=== PATIENT | female | born 1980 | race Caucasian/White ===

== ENCOUNTER 2016-12-02 13:01 | Emergency (ER) | payer BC, OTHER ==
[~2016-12-02] VITALS: Ht 162.6 cm; Wt 78.0 kg
[2016-12-02 13:25] VITALS: BP 144/98
[2016-12-02 14:18] LABS: BASO % 0 % (0-3); EOS # 0.1 x10^3/uL (0.0-0.7); EOS % 1 % (0-3); HEMATOCRIT 36.6 % (36.0-47.0); HEMOGLOBIN 12.6 g/dL (12.0-15.5); LYMPH # 1.5 x10^3/uL (1.0-4.8); LYMPH % 14 % (24-48); MEAN CORPUSCULAR HEMOGLOBIN 30 pg (25-35); MEAN CORPUSCULAR HGB CONC 35 g/dL (31-37); MEAN CORPUSCULAR VOLUME 87 fL (79-100); MONO # 0.7 x10^3/uL (0.0-1.1); MONO % 6 % (0-9); NEUT # 8.5 x10^3uL (1.8-7.7); NEUT % 79 % (31-73); PLATELET COUNT 338 x10^3/uL (140-400); RED BLOOD COUNT 4.21 x10^6/uL (3.50-5.40); RED CELL DISTRIBUTION WIDTH 13.3 % (11.5-14.5); WHITE BLOOD COUNT 10.8 x10^3/uL (4.0-11.0)
[2016-12-02 14:19] LABS: CREATININE 0.8 mg/dL (0.6-1.0); GFR 82.1; POTASSIUM 3.4 mmol/L (3.5-5.1)
[2016-12-02 14:36] LABS: BILIRUBIN,URINE NEG (NEG); CLARITY,URINE HAZY; COLOR,URINE STRAW; GLUCOSE,URINE NEG (NEG); NITRITE,URINE NEG (NEG); UROBILINOGEN,URINE 0.2 mg/dL (0.2 mg/dL)
[2016-12-02 14:37] LABS: BACTERIA,URINE FEW /HPF (0-FEW); SQUAMOUS EPITHELIAL CELL,UR MOD /LPF
--- NOTE | 2016-12-02 15:49 | RAD ---
Obstetrical ultrasound, 12/02/2016: History: Vaginal bleeding, positive test Transabdominal and transvaginal scans were obtained. The central uterine echo complex is thickened. It contains a small cystic structure compatible with an early gestational sac. It demonstrates a mean diameter of 5 mm compatible with a gestational age of 5-6 weeks. This yields a sonographic EDC of 08/02/2017. No yolk sac or pole is seen within the gestational sac, however, that is not considered abnormal at this early stage. There is no evidence of subchorionic hemorrhage. The ovaries are of normal size. A 1.3 cm simple cyst is present in the right ovary. No abnormal adnexal mass is seen. There is a trace amount of free fluid in the pelvis. This amount of fluid can be on a physiologic basis. IMPRESSION: 1. Early intrauterine gestation as described above. Sonographic follow-up is suggested to confirm viability of this . 2. Small right ovarian cyst.
--- NOTE | 2016-12-02 16:06 | PHYS DOC ---
Past History Past Medical History: , Other Past Surgical History: Other Alcohol Use: None Drug Use: None Adult General Chief Complaint Chief Complaint: VAGINAL BLEEDING HPI HPI Patient is a 36 year old female who presents with vaginal bleeding in early . Patient reports onset of symptoms today with light spotting & passage of a few clots, & lower abdominal cramping pain. She denies fevers/ chills, nausea, vomiting, diarrhea, dysuria, vaginal discharge. She has been receiving progesterone injections. She is at about 8 weeks by dates with history of 3 spontaneous abortions. Her PCP is Dr. Murillo & she does not yet have an OB. Review of Systems Review of Systems Constitutional: Denies fever or chills HENT: Denies nasal congestion or sore throat Respiratory: Denies cough or shortness of breath Cardiovascular: Denies chest pain GI: Reports abdominal pain, denies nausea, vomiting : Reports vaginal bleeding Musculoskeletal: Denies back pain or joint pain Integument: Denies rash Neurologic: Denies headache Allergies Allergies Allergies Coded Allergies Type Severity Reaction Last Updated Verified No Known Drug Allergies 05/11/15 No Physical Exam Physical Exam Constitutional: Well developed, well nourished, no acute distress, non-toxic appearance. HENT: Normocephalic, atraumatic, bilateral external ears normal, oropharynx moist, nose normal. Eyes: conjunctiva normal, no discharge. Neck: supple, no stridor. Cardiovascular: RRR, no murmurs, no edema. Lungs & Thorax: LCTAB, no wheezing, no respiratory distress. Abdomen: soft, nontender, nondistended. no masses or pulsatile masses. : normal appearing female external genitalia, normal appearing cervix with closed os, minimal dark blood in vaginal vault, no CMT/adnexal tenderness. Skin: Warm, dry, no erythema, no rash. Back: No CVA tenderness. Extremities: No tenderness, no edema. Neurologic: Alert and oriented X 3, no focal deficits noted. Psychologic: Affect normal, judgement normal, mood normal. Current Patient Data Vital Signs Vital Signs Date Time Temp Pulse Resp B/P (MAP) Pulse Ox O2 Delivery O2 Flow Rate FiO2 12/02/16 13:25 98.5 87 18 100 12/02/16 13:10 Room Air Lab Results Laboratory Tests Test 12/02/16 13:35 12/02/16 13:57 12/02/16 14:26 Urine Collection Type Unknown Urine Color Straw Urine Clarity Hazy Urine pH 6.0 Urine Specific Davis <=1.005 Urine Protein Neg (NEG-TRACE) Urine Glucose (UA) Neg mg/dL (NEG) Urine Ketones (Stick) Neg mg/dL (NEG) Urine Blood Mod (NEG) Urine Nitrite Neg (NEG) Urine Bilirubin Neg (NEG) Urine Urobilinogen Dipstick 0.2 mg/dL (0.2 mg/dL) Urine Leukocyte Esterase Trace (NEG) Urine RBC 6-10 /HPF (0-2) Urine WBC 1-4 /HPF (0-4) Urine Squamous Epithelial Cells Mod /LPF Urine Bacteria Few /HPF (0-FEW) White Blood Count 10.8 x10^3/uL (4.0-11.0) Red Blood Count 4.21 x10^6/uL (3.50-5.40) Hemoglobin 12.6 g/dL (12.0-15.5) Hematocrit 36.6 % (36.0-47.0) Mean Corpuscular Volume 87 fL (79-100) Mean Corpuscular Hemoglobin 30 pg (25-35) Mean Corpuscular Hemoglobin Concent 35 g/dL (31-37) Red Cell Distribution Width 13.3 % (11.5-14.5) Platelet Count 338 x10^3/uL (140-400) Neutrophils (%) (Auto) 79 % (31-73) H Lymphocytes (%) (Auto) 14 % (24-48) L Monocytes (%) (Auto) 6 % (0-9) Eosinophils (%) (Auto) 1 % (0-3) Basophils (%) (Auto) 0 % (0-3) Neutrophils # (Auto) 8.5 x10^3uL (1.8-7.7) H Lymphocytes # (Auto) 1.5 x10^3/uL (1.0-4.8) Monocytes # (Auto) 0.7 x10^3/uL (0.0-1.1) Eosinophils # (Auto) 0.1 x10^3/uL (0.0-0.7) Basophils # (Auto) 0.0 x10^3/uL (0.0-0.2) Maternal Serum HCG Beta Subunit 774 mIU/mL (0-6) H Sodium Level 140 mmol/L (136-145) Potassium Level 3.4 mmol/L (3.5-5.1) L Chloride Level 105 mmol/L (98-107) Carbon Dioxide Level 28 mmol/L (21-32) Anion Gap 7 (6-14) Blood Urea Nitrogen 9 mg/dL (7-20) Creatinine 0.8 mg/dL (0.6-1.0) Estimated GFR (Cockcroft-Gault) 82.1 Glucose Level 104 mg/dL (70-99) H Calcium Level 9.0 mg/dL (8.5-10.1) POC Urine HCG, Qualitative hcg positive (Negative) EKG EKG [] Radiology/Procedures Radiology/Procedures PROCEDURE: OB <14 WKS W/TV Obstetrical ultrasound, 12/02/2016: History: Vaginal bleeding, positive test Transabdominal and transvaginal scans were obtained. The central uterine echo complex is thickened. It contains a small cystic structure compatible with an early gestational sac. It demonstrates a mean diameter of 5 mm compatible with a gestational age of 5-6 weeks. This yields a sonographic EDC of 08/02/2017. No yolk sac or pole is seen within the gestational sac, however, that is not considered abnormal at this early stage. There is no evidence of subchorionic hemorrhage. The ovaries are of normal size. A 1.3 cm simple cyst is present in the right ovary. No abnormal adnexal mass is seen. There is a trace amount of free fluid in the pelvis. This amount of fluid can be on a physiologic basis. IMPRESSION: 1. Early intrauterine gestation as described above. Sonographic follow-up is suggested to confirm viability of this . 2. Small right ovarian cyst. DICTATED AND SIGNED BY: JOSÉ MIGUEL COOK MD DATE: 12/02/16 1542 [] Course & Med Decision Making Course & Med Decision Making Pertinent Labs and Imaging studies reviewed. (See chart for details) The patient presents with vaginal bleeding in early . Vitals stable, well appearing, Bleeding minimal on exam & pain well controlled. Hemoglobin stable, Rh positive. BHCG is in 700s with US showing likely early IUP about 5- 6 weeks. BCHG & US seem to correlate but not consistent with her dates. She actually had labs drawn by PCP last week, so US tech called for results. Unfortunately they lynn progresterone levels but no BHCG so not able to trend. Discussed at length with patient; unfortunately difficult to give definite information based on just today's visit, most helpful will be to follow BHCG trend & see whether gestational sac progresses on US. Patient understands though is obviously anxious given her history. Recommend pelvic rest, tylenol for pain, follow up with PCP or OB in 2 days for repeat labs & possibly repeat US. She can contact Dr. Victoria at [place] if she is unable to establish care with an OB of her choice in this time frame. Come back for high fever, severe pain, uncontrolled vomiting, vaginal hemorrhage requiring greater than 1 pad per hour, any otherwise worsening condition. Discharged home in stable condition. [] Dragon Disclaimer Dragon Disclaimer This chart was dictated in whole or in part using Voice Recognition software in a busy, high-work load, and often noisy Emergency Department environment. It may contain unintended and wholly unrecognized errors or omissions. Departure Departure: Impression: Primary Impression: Vaginal bleeding before 22 weeks gestation Disposition: HOME, SELF-CARE Condition: STABLE Referrals: BINTA ROMERO DO (PCP) [facility] Patient Instructions: Vaginal Bleeding During , First Trimester Additional Instructions: You were seen in the emergency department today for vaginal bleeding in early . Your ultrasound today shows gestational sac but no pole or heartbeat, which is consistent with being about 5-6 weeks . Your B HCG was 774. It is important to follow up with OB or with your primary care for repeat labs & possibly another ultrasound. Don't have intercourse & try to rest. Make an appointment in 2 days. Come back for high fever, severe pain, uncontrolled vomiting, heavy bleeding requiring more than 1 pad per hour, any otherwise worsening condition. GABRIELLE LEWIS MD Dec 02, 2016 16:06
[2016-12-03 17:11] LABS: CHLAMYDIA PROBE Negative (Negative)
== END 2016-12-02 16:26 | disposition home or self-care (01) ==
LOC: ER 13:01
DX: O46.91 Antepartum hemorrhage, unspecified, first trimester (principal); Z3A.01 Less than 8 weeks gestation of pregnancy
CPT/HCPCS: 36415; 76801; 76817; 80048; 81001; 81025; 84702; 85025; 86850; 86900; 86901; 87086; 87491; 87591; 99285; Q0111

== ENCOUNTER 2016-12-03 08:55 | Emergency (ER) | payer OTHER ==
[~2016-12-03] VITALS: Ht 162.6 cm; Wt 77.1 kg
[2016-12-03 10:00] VITALS: BP 108/60
[2016-12-03] MEDS ORDERED: diphenhydrAMINE 50 MG/ML VIAL IM ONE (10:00)
[2016-12-03] MEDS ORDERED: PROCHLORPERAZINE 10 MG/2 ML VIAL. IM ONE (10:00)
[2016-12-03] MEDS ORDERED: KETOROLAC 60 MG/2 ML VIAL. IM ONE (10:00)
[2016-12-03 10:24] LABS: BASO # 0.1 x10^3/uL (0.0-0.2); BASO % 1 % (0-3); EOS % 1 % (0-3); HEMATOCRIT 37.3 % (36.0-47.0); HEMOGLOBIN 12.8 g/dL (12.0-15.5); LYMPH # 1.4 x10^3/uL (1.0-4.8); LYMPH % 16 % (24-48); MEAN CORPUSCULAR HEMOGLOBIN 30 pg (25-35); MEAN CORPUSCULAR HGB CONC 34 g/dL (31-37); MEAN CORPUSCULAR VOLUME 87 fL (79-100); MONO # 0.6 x10^3/uL (0.0-1.1); MONO % 7 % (0-9); NEUT # 6.8 x10^3uL (1.8-7.7); NEUT % 76 % (31-73); PLATELET COUNT 325 x10^3/uL (140-400); RED CELL DISTRIBUTION WIDTH 13.2 % (11.5-14.5)
--- NOTE | 2016-12-03 11:06 | PHYS DOC ---
Past History Past Medical History: , Other Past Surgical History: Other Alcohol Use: None Drug Use: None Adult General Chief Complaint Chief Complaint: VAGINAL BLEEDING HPI HPI Patient is a 36 year old F who presents with vaginal bleeding during that started yesterday. Today she has had increasing suprapubic cramping with passage of a large clot this morning. She does have a history of miscarriages and difficulty conceiving. She has been taking progesterone in order to become and has been managed by Dr. Murillo, [facility]. She has no exacerbating or alleviating factors. She has no other associated symptoms Review of Systems Review of Systems Constitutional: Denies fever or chills [] Eyes: Denies change in visual acuity, redness, or eye pain [] HENT: Denies nasal congestion or sore throat [] Respiratory: Denies cough or shortness of breath [] Cardiovascular: No additional information not addressed in HPI [] GI: Negative except history of present illness : Denies dysuria or hematuria [] Musculoskeletal: Denies back pain or joint pain [] Integument: Denies rash or skin lesions [] Neurologic: Denies headache, focal weakness or sensory changes [] Endocrine: Denies polyuria or polydipsia [] Family History Family History Noncontributory Current Medications Current Medications Current Medications Medications (Trade) Dose Ordered Sig/[facility] Start Time Stop Time Status Last Admin Dose Admin Diphenhydramine HCl (Benadryl) 50 mg 1X ONCE 12/03/16 10:00 12/03/16 10:01 DC 12/03/16 09:51 50 MG Ketorolac Tromethamine (Toradol) 30 mg 1X ONCE 12/03/16 10:00 12/03/16 10:01 DC 12/03/16 10:00 30 MG Prochlorperazine Edisylate (Compazine) 10 mg 1X ONCE 12/03/16 10:00 12/03/16 10:01 DC 12/03/16 09:51 10 MG Allergies Allergies Allergies Coded Allergies Type Severity Reaction Last Updated Verified No Known Drug Allergies 05/11/15 No Physical Exam Physical Exam Constitutional: Well developed, well nourished, no acute distress, non-toxic appearance. [] HENT: Normocephalic, atraumatic, Eyes: EOMI, conjunctiva normal, no discharge. [] Cardiovascular:Heart rate regular rhythm, no murmur [] Lungs & Thorax: Bilateral breath sounds clear to auscultation [] Abdomen: Bowel sounds normal, soft, no masses, no pulsatile masses. [] Mild suprapubic tenderness to palpation Skin: Warm, dry, no erythema, no rash. [] Back: No tenderness, no CVA tenderness. [] Extremities: No tenderness, no cyanosis, no clubbing, ROM intact, no edema. [] Neurologic: Alert and oriented X 3, normal motor function, normal sensory function, no focal deficits noted. [] Psychologic: Affect normal, judgement normal, mood normal. [] Current Patient Data Vital Signs Normal vital signs. Please refer to nursing documentation for specifics Lab Results Laboratory Tests Test 12/03/16 10:10 White Blood Count 9.0 x10^3/uL (4.0-11.0) Red Blood Count 4.30 x10^6/uL (3.50-5.40) Hemoglobin 12.8 g/dL (12.0-15.5) Hematocrit 37.3 % (36.0-47.0) Mean Corpuscular Volume 87 fL (79-100) Mean Corpuscular Hemoglobin 30 pg (25-35) Mean Corpuscular Hemoglobin Concent 34 g/dL (31-37) Red Cell Distribution Width 13.2 % (11.5-14.5) Platelet Count 325 x10^3/uL (140-400) Neutrophils (%) (Auto) 76 % (31-73) H Lymphocytes (%) (Auto) 16 % (24-48) L Monocytes (%) (Auto) 7 % (0-9) Eosinophils (%) (Auto) 1 % (0-3) Basophils (%) (Auto) 1 % (0-3) Neutrophils # (Auto) 6.8 x10^3uL (1.8-7.7) Lymphocytes # (Auto) 1.4 x10^3/uL (1.0-4.8) Monocytes # (Auto) 0.6 x10^3/uL (0.0-1.1) Eosinophils # (Auto) 0.0 x10^3/uL (0.0-0.7) Basophils # (Auto) 0.1 x10^3/uL (0.0-0.2) Maternal Serum HCG Beta Subunit 661 mIU/mL (0-6) H Beta hCG compared to previous and found to be decreasing. Hemoglobin is stable when compared to previous Course & Med Decision Making Course & Med Decision Making Pertinent Labs and Imaging studies reviewed. (See chart for details) Dragon Disclaimer Dragon Disclaimer This chart was dictated in whole or in part using Voice Recognition software in a busy, high-work load, and often noisy Emergency Department environment. It may contain unintended and wholly unrecognized errors or omissions. Departure Departure: Impression: Primary Impression: Miscarriage Disposition: HOME, SELF-CARE Condition: STABLE Referrals: BINTA ROMERO DO (PCP) Patient Instructions: Miscarriage Additional Instructions: Yesi was seen in the emergency department for vaginal bleeding during . No emergency medical condition was found on history or physical exam. She did have labs which showed normal blood counts and following beta hCG levels as compared to yesterday. This decrease is consistent with a miscarriage. Her OB was contacted by phone and recommended holding her progesterone at this time. She was advised follow-up with her OB in the next 1- 2 weeks for further management. SHAHID ESTRELLA MD Dec 03, 2016 11:06
== END 2016-12-03 11:28 | disposition home or self-care (01) ==
LOC: ER 08:55
DX: O03.9 Complete or unspecified spontaneous abortion without complication (principal)
CPT/HCPCS: 36415; 84702; 85025; 86900; 86901; 96372; 99284; J0780; J1200; J1885

== ENCOUNTER 2018-06-15 14:56 | Emergency (ER) | payer OTHER ==
[~2018-06-15] VITALS: Ht 162.6 cm; Wt 77.1 kg
[2018-06-15] MEDS ORDERED: IV NORMAL SALINE 1,000ML 1,000 ML IV ONE (15:15)
--- NOTE | 2018-06-15 15:16 | PHYS DOC ---
Past History Past Medical History: , Other Past Surgical History: Other Alcohol Use: None Drug Use: None Adult General Chief Complaint Chief Complaint: HEADACHE HPI HPI 37-year-old female presents with headache. The patient has a history of migraines. She states that this headache feels somewhat her previous migraines. The pain was in the front of her head. She also has some upper neck pain. She took 25 mg doses of zolmitriptan about 4-5 hours ago but it did not help. She has been nauseated and vomited at least once. She denies fever or chills. She has no other symptoms of illness. Review of Systems Review of Systems Constitutional: Denies fever or chills [] Eyes: Denies change in visual acuity, redness, or eye pain [] HENT: Denies nasal congestion or sore throat [] Respiratory: Denies cough or shortness of breath [] Cardiovascular: No additional information not addressed in HPI [] GI: Denies abdominal pain, nausea, vomiting, bloody stools or diarrhea [] : Denies dysuria or hematuria [] Musculoskeletal: Denies back pain or joint pain [] Integument: Denies rash or skin lesions [] Neurologic: Headache. Denies focal weakness or sensory changes [] Endocrine: Denies polyuria or polydipsia [] All other systems were reviewed and found to be within normal limits, except as documented in this note. Allergies Allergies Allergies Coded Allergies Type Severity Reaction Last Updated Verified No Known Drug Allergies 05/11/15 No Physical Exam Physical Exam Constitutional: Well developed, well nourished, no acute distress, non-toxic appearance. [] HENT: Normocephalic, atraumatic, bilateral external ears normal, oropharynx moist, no oral exudates, nose normal.[] Eyes: PERRLA, EOMI, conjunctiva normal, no discharge. Photophobia [] Neck: Normal range of motion, no tenderness, supple, no stridor. [] Cardiovascular:Heart rate regular rhythm, no murmur [] Lungs & Thorax: Bilateral breath sounds clear to auscultation [] Abdomen: Bowel sounds normal, soft, no tenderness, no masses, no pulsatile masses. [] Skin: Warm, dry, no erythema, no rash. [] Back: No tenderness, no CVA tenderness. [] Extremities: No tenderness, no cyanosis, no clubbing, ROM intact, no edema. [] Neurologic: Alert and oriented X 3, normal motor function, normal sensory function, no focal deficits noted. [] Psychologic: Affect in pain, judgement normal, mood normal. [] EKG EKG [] Radiology/Procedures Radiology/Procedures [] Course & Med Decision Making Course & Med Decision Making Pertinent Labs and Imaging studies reviewed. (See chart for details) She was given 1 L normal saline, 25 mg of Benadryl, 10 mg Reglan, 30 mg of Toradol for her headache. After period of rest, the patient is feeling much better at this time. She would like to go home. She is stable for discharge at this time. [] Dragon Disclaimer Dragon Disclaimer This electronic medical record was generated, in whole or in part, using a voice recognition dictation system. Departure Departure: Impression: Primary Impression: Migraine Disposition: HOME, SELF-CARE Condition: IMPROVED Referrals: XOCHILT SANDERSON MD (PCP) Patient Instructions: Migraine Headache, Rcla-ey-Bocc Problem Qualifiers Primary Impression: Migraine Migraine type: without aura Status migrainosus presence: without status migrainosus Intractability: intractable Qualified Codes: G43.019 - Migraine without aura, intractable, without status migrainosus RAUL WHITLEY DO Jun 15, 2018 15:16
[2018-06-15 15:37] LABS: BASO % 0 % (0-3); EOS % 0 % (0-3); HEMATOCRIT 40.4 % (36.0-47.0); HEMOGLOBIN 13.4 g/dL (12.0-15.5); LYMPH # 0.8 x10^3/uL (1.0-4.8); LYMPH % 8 % (24-48); MEAN CORPUSCULAR HEMOGLOBIN 29 pg (25-35); MEAN CORPUSCULAR HGB CONC 33 g/dL (31-37); MEAN CORPUSCULAR VOLUME 86 fL (79-100); MONO # 0.2 x10^3/uL (0.0-1.1); MONO % 3 % (0-9); NEUT # 8.8 x10^3uL (1.8-7.7); NEUT % 89 % (31-73); PLATELET COUNT 389 x10^3/uL (140-400); RED CELL DISTRIBUTION WIDTH 13.4 % (11.5-14.5); WHITE BLOOD COUNT 9.8 x10^3/uL (4.0-11.0)
[2018-06-15] MEDS ORDERED: METOCLOPRAMIDE HCL 10 MG/2 ML VIAL. IV ONE (15:45)
[2018-06-15] MEDS ORDERED: KETOROLAC 30 MG/ML VIAL. IV ONE (15:45)
[2018-06-15] MEDS ORDERED: diphenhydrAMINE 50 MG/ML VIAL IVP ONE (15:45)
[2018-06-15 16:14] LABS: ALBUMIN/GLOBULIN RATIO 1.1 (1.0-1.7); CALCIUM 8.9 mg/dL (8.5-10.1); CREATININE 0.7 mg/dL (0.6-1.0); GFR 95.2; POTASSIUM 3.6 mmol/L (3.5-5.1); TOTAL BILIRUBIN 0.6 mg/dL (0.2-1.0); TOTAL PROTEIN 7.7 g/dL (6.4-8.2)
[2018-06-15 17:02] VITALS: BP 142/64
== END 2018-06-15 16:55 | disposition home or self-care (01) ==
LOC: ER 14:56
DX: G43.909 Migraine, unspecified, not intractable, without status migrainosus (principal); R11.2 Nausea with vomiting, unspecified
CPT/HCPCS: 36415; 80053; 85025; 96361; 96374; 96375; 99283; J1200; J1885; J2765; J7030

== ENCOUNTER 2019-03-31 16:57 | Emergency (ER) | payer OTHER ==
[~2019-03-31] VITALS: Ht 160 cm; Wt 86.2 kg
[2019-03-31 17:34] VITALS: BP 130/76
[2019-03-31] MEDS ORDERED: IV NORMAL SALINE 1,000ML 1,000 ML IV ONE (18:00)
--- NOTE | 2019-03-31 18:01 | PHYS DOC ---
Past History Past Medical History: Constipation, Migraines, Other Additional Past Medical Histor: " bowel obstruction, gastritis, retinal detachment,, cataracts, goiter. (RAUL WHITLEY DO) Past Surgical History: Other Additional Past Surgical Histo: Knee, cataract, sclera buckle, (RAUL WHITLEY DO) Alcohol Use: None Drug Use: None (RAUL WHITLEY DO) Adult General Chief Complaint Chief Complaint: ABDOMINAL PAIN IN HPI HPI 38 showed female presents with lower abdominal pain in and concern for constipation. The patient believe she is . She thinks she is about 9 weeks. She does not know when her last menstrual period was. She has had a positive urine test at home. The last 3 days she's had increased vaginal discharge that is yellowish in color. She's had no vaginal bleeding. She also has a history of constipation and has fullness in her pelvis. She wonders if this is just constipation. She denies fever or chills. She has had multiple spontaneous miscarriages in the past. She is also had a history of bowel obstruction. (RAUL WHITLEY DO) Review of Systems Review of Systems Constitutional: Denies fever or chills [] Eyes: Denies change in visual acuity, redness, or eye pain [] HENT: Denies nasal congestion or sore throat [] Respiratory: Denies cough or shortness of breath [] Cardiovascular: No additional information not addressed in HPI [] GI: Lower abdominal pain. constipation. Denies nausea, vomiting, bloody stools or diarrhea [] : Denies dysuria or hematuria [] Musculoskeletal: Denies back pain or joint pain [] Integument: Denies rash or skin lesions [] Neurologic: Denies headache, focal weakness or sensory changes [] Endocrine: Denies polyuria or polydipsia [] All other systems were reviewed and found to be within normal limits, except as documented in this note. (RAUL WHITLEY DO) Current Medications Current Medications Current Medications Medications (Trade) Dose Ordered Sig/[facility] Start Time Stop Time Status Last Admin Dose Admin Sodium Chloride 1,000 ml @ 1,000 mls/hr 1X ONCE 03/31/19 18:00 03/31/19 18:59 UNV (RAUL WHITLEY DO) Allergies Allergies Allergies Coded Allergies Type Severity Reaction Last Updated Verified No Known Drug Allergies 05/11/15 No (RAUL WHITLEY DO) Physical Exam Physical Exam Constitutional: Well developed, well nourished, no acute distress, non-toxic appearance. [] HENT: Normocephalic, atraumatic, bilateral external ears normal, oropharynx moist, no oral exudates, nose normal. [] Eyes: PERRLA, EOMI, conjunctiva normal, no discharge. [] Neck: Normal range of motion, no tenderness, supple, no stridor. [] Cardiovascular:Heart rate regular rhythm, no murmur [] Lungs & Thorax: Bilateral breath sounds clear to auscultation [] Abdomen: Bowel sounds normal, soft, no tenderness, no masses, no pulsatile masses. [] Skin: Warm, dry, no erythema, no rash. [] Back: No tenderness, no CVA tenderness. [] Extremities: No tenderness, no cyanosis, no clubbing, ROM intact, no edema. [] Neurologic: Alert and oriented X 3, normal motor function, normal sensory function, no focal deficits noted. [] Psychologic: Affect normal, judgement normal, mood normal. [] (RAUL WHITLEY DO) Current Patient Data Vital Signs Vital Signs Date Time Temp Pulse Resp B/P (MAP) Pulse Ox O2 Delivery O2 Flow Rate FiO2 03/31/19 17:34 98.8 98 16 99 Room Air Lab Results Laboratory Tests Test 03/31/19 17:33 POC Urine HCG, Qualitative hcg positive (Negative) (RAUL WHITLEY DO) EKG EKG [] (RAUL WHITLEY DO) Radiology/Procedures Radiology/Procedures [] (RAUL WHITLEY DO) Impressions: FINDINGS: Uterus measures 13.4 x 8.0 x 5.5 cm. Within the endometrium there is a round gestational sac with internal pole measuring 3.1 cm corresponding to 10 weeks 0 days gestation. heart rate measured at 169 bpm Right ovary measures 2.7 x 1.8 x 2.0 cm. Left ovary measures 3.1 x 3.7 x 1.8 cm. No free fluid identified within the pelvis. IMPRESSION: Single live intrauterine gestation measuring 10 weeks 0 days gestation by ultrasound. Estimated due date by ultrasound 10/27/2019. Electronically signed by: Karla Pa MD (03/31/2019 7:08 PM) [facility] DICTATED AND SIGNED BY: KARLA PA MD DATE: 03/31/191907 CC: RAUL WHITLEY DO; ARMAAN ALCANTARA MD; XOCHILT SANDERSON MD ~ (ARMAAN ALCANTARA MD) Course & Med Decision Making Course & Med Decision Making Pertinent Labs and Imaging studies reviewed. (See chart for details) Asians vaginal exam was unremarkable. She did not have significant discharge. Her abdominal x-ray did show a fair amount of stool in the rectal vault. She also has some retained stool in the colon on the ascending side. The rest of her workup is pending. I'm signing the patient out to Dr. Alcantara who will determine her final disposition and treatment plan. [] (RAUL WHITLEY DO) Course & Med Decision Making Abdomen: 2 views obtained. Moderate stool in the right-sided colon with air-filled dilatation of the left side of the colon. Grossly nonobstructive bowel gas pattern. There is a metallic density structure projecting over the pelvis which could be external to the patient. Electronically signed by: Heladio Valencia MD (03/31/2019 6:19 PM) [facility] DICTATED AND SIGNED BY: HELADIO VALENCIA MD DATE: 03/31/191818 CC: RAUL WHITLEY DO; ARMAAN ALCANTARA MD; XOCHILT SANDERSON MD ~ cultures collected By Dr. Whitley I saw and evaluated the patient she thinks she is constipated I tender to agree given the KUB and her history. She also was having some dysuria given the leukocytosis and the urine sample which is borderline given her symptoms we will treat with Keflex I recommended MiraLAX she has that at home return precautions discussed and she voiced understanding of instructions she has follow-up with OB next week (ARMAAN ALCANTARA MD) Dragon Disclaimer Dragon Disclaimer This electronic medical record was generated, in whole or in part, using a voice recognition dictation system. (RAUL WHITLEY DO) Departure Departure: Impression: Primary Impression: Constipation Disposition: HOME, SELF-CARE Condition: STABLE Referrals: XOCHILT SANDERSON MD (PCP) Scripts Cephalexin (CEPHALEXIN) 500 Mg Tablet 1 TAB PO TID for uti, #30 TAB Prov: ARMAAN ALCANTARA MD 03/31/19 RAUL WHITLEY DO Mar 31, 2019 18:01 ARMAAN ALCANTARA MD Mar 31, 2019 18:56
[2019-03-31 18:20] LABS: BACTERIA,URINE FEW /HPF (0-FEW); BILIRUBIN,URINE NEG (NEG); CLARITY,URINE HAZY; COLOR,URINE YELLOW; GLUCOSE,URINE NEG (NEG); NITRITE,URINE NEG (NEG); RBC,URINE RARE /HPF (0-2); SQUAMOUS EPITHELIAL CELL,UR FEW /LPF; UROBILINOGEN,URINE 0.2 mg/dL (0.2 mg/dL)
--- NOTE | 2019-03-31 18:22 | RAD ---
INDICATION: Constipation COMPARISON: None. IMPRESSION: Abdomen: 2 views obtained. Moderate stool in the right-sided colon with air-filled dilatation of the left side of the colon. Grossly nonobstructive bowel gas pattern. There is a metallic density structure projecting over the pelvis which could be external to the patient. Electronically signed by: Steve Valencia MD (03/31/2019 6:19 PM) [facility]
--- NOTE | 2019-03-31 19:11 | RAD ---
Exam: Ultrasound OB less than 14 weeks Indication: Abdominal pain Technique: Real-time grayscale and color Doppler images of the pelvis were obtained by the department safety representative. Comparisons: None FINDINGS: Uterus measures 13.4 x 8.0 x 5.5 cm. Within the endometrium there is a round gestational sac with internal pole measuring 3.1 cm corresponding to 10 weeks 0 days gestation. heart rate measured at 169 bpm Right ovary measures 2.7 x 1.8 x 2.0 cm. Left ovary measures 3.1 x 3.7 x 1.8 cm. No free fluid identified within the pelvis. IMPRESSION: Single live intrauterine gestation measuring 10 weeks 0 days gestation by ultrasound. Estimated due date by ultrasound 10/27/2019. Electronically signed by: Karla Pearson MD (03/31/2019 7:08 PM) [facility]
[2019-03-31 19:37] LABS: BASO % 0 % (0-3); EOS % 0 % (0-3); HEMATOCRIT 37.7 % (36.0-47.0); HEMOGLOBIN 12.4 g/dL (12.0-15.5); LYMPH # 1.4 x10^3/uL (1.0-4.8); LYMPH % 10 % (24-48); MEAN CORPUSCULAR HEMOGLOBIN 28 pg (25-35); MEAN CORPUSCULAR HGB CONC 33 g/dL (31-37); MEAN CORPUSCULAR VOLUME 86 fL (79-100); MONO # 0.6 x10^3/uL (0.0-1.1); MONO % 4 % (0-9); NEUT # 12.4 x10^3uL (1.8-7.7); NEUT % 86 % (31-73); PLATELET COUNT 373 x10^3/uL (140-400); RED BLOOD COUNT 4.36 x10^6/uL (3.50-5.40); RED CELL DISTRIBUTION WIDTH 13.2 % (11.5-14.5); WHITE BLOOD COUNT 14.4 x10^3/uL (4.0-11.0)
[2019-03-31 19:46] LABS: CALCIUM 9.2 mg/dL (8.5-10.1); CREATININE 0.6 mg/dL (0.6-1.0); GFR 113.1; POTASSIUM 4.5 mmol/L (3.5-5.1)
[2019-03-31 19:51] LABS: ALBUMIN 3.9 g/dL (3.4-5.0); ALBUMIN/GLOBULIN RATIO 1.1 (1.0-1.7); TOTAL BILIRUBIN 0.3 mg/dL (0.2-1.0); TOTAL PROTEIN 7.6 g/dL (6.4-8.2)
[2019-03-31] MEDS ORDERED: CEPH500T PO (20:09)
[2019-04-04 19:07] LABS: CHLAMYDIA PROBE Negative (Negative)
== END 2019-03-31 20:30 | disposition home or self-care (01) ==
LOC: ER 16:57
DX: O26.891 Other specified pregnancy related conditions, first trimester (principal); K59.00 Constipation, unspecified; R10.30 Lower abdominal pain, unspecified; Z3A.10 10 weeks gestation of pregnancy
CPT/HCPCS: 36415; 74018; 76801; 80053; 81001; 81025; 84702; 85025; 87086; 87491; 87591; 99285; Q0111; J7030

== ENCOUNTER 2019-05-31 11:46 | Emergency (ER) | payer OTHER ==
[~2019-05-31] VITALS: Ht 162.6 cm; Wt 88.0 kg
[~2019-05-31 11:46] MED LIST: CEPH500T PO
--- NOTE | 2019-05-31 12:10 | PHYS DOC ---
Past History Past Medical History: Constipation, Migraines, Other Additional Past Medical Histor: " bowel obstruction, gastritis, retinal detachment,, cataracts, goiter. Past Surgical History: Other Additional Past Surgical Histo: Knee, cataract, sclera buckle, Alcohol Use: None Drug Use: None Adult General Chief Complaint Chief Complaint: MULTIPLE COMPLAINTS HPI HPI Patient is a patient is a 38-year-old female, A7 at 19 weeks who presents with complaint of midsternal chest discomfort with intermittent palpitations since . Patient denies any nausea, vomiting or diaphoresis. Patient denies any headache. Patient was instructed to come here by her OB.[] Review of Systems Review of Systems Constitutional: Denies fever or chills [] Eyes: Denies change in visual acuity, redness, or eye pain [] Respiratory: Denies cough or shortness of breath [] Cardiovascular: No additional information not addressed in HPI [] Integument: Denies rash or skin lesions [] Neurologic: Denies headache, focal weakness or sensory changes [] All other systems were reviewed and found to be within normal limits, except as documented in this note. Allergies Allergies Allergies Coded Allergies Type Severity Reaction Last Updated Verified No Known Drug Allergies 05/11/15 No Physical Exam Physical Exam Constitutional: Well developed, well nourished, no acute distress, non-toxic appearance. [] HENT: Normocephalic, atraumatic, bilateral external ears normal, oropharynx moist, no oral exudates, nose normal. [] Eyes: PERRLA, EOMI, conjunctiva normal, no discharge. [] Neck: Normal range of motion, no tenderness, supple, no stridor. [] Cardiovascular:Heart rate regular rhythm, no murmur [] Lungs & Thorax: Bilateral breath sounds clear to auscultation [] Abdomen: Bowel sounds normal, soft, no tenderness. [] Skin: Warm, dry, no erythema, no rash. [] Extremities: No tenderness, no cyanosis, no clubbing, ROM intact, no edema. [] Neurologic: Alert and oriented X 3, no focal deficits noted. [] EKG EKG [] Radiology/Procedures Radiology/Procedures [] Course & Med Decision Making Course & Med Decision Making Pertinent Labs and Imaging studies reviewed. (See chart for details) [] Dragon Disclaimer Dragon Disclaimer This electronic medical record was generated, in whole or in part, using a voice recognition dictation system. Departure Departure: Impression: Primary Impression: Chest wall pain Disposition: HOME, SELF-CARE Condition: STABLE Referrals: SHAHID MEJIA MD (PCP) Patient Instructions: Chest Wall Pain ANURADHA LOCKE Jr. DO May 31, 2019 12:10
[2019-05-31 12:56] VITALS: BP 148/73
[2019-05-31 13:03] LABS: BASO % 1 % (0-3); EOS % 0 % (0-3); HEMATOCRIT 35.7 % (36.0-47.0); HEMOGLOBIN 11.9 g/dL (12.0-15.5); LYMPH # 1.3 x10^3/uL (1.0-4.8); LYMPH % 13 % (24-48); MEAN CORPUSCULAR HEMOGLOBIN 29 pg (25-35); MEAN CORPUSCULAR HGB CONC 33 g/dL (31-37); MEAN CORPUSCULAR VOLUME 87 fL (79-100); MONO # 0.5 x10^3/uL (0.0-1.1); MONO % 5 % (0-9); NEUT # 7.9 x10^3uL (1.8-7.7); NEUT % 81 % (31-73); PLATELET COUNT 351 x10^3/uL (140-400); RED CELL DISTRIBUTION WIDTH 13.6 % (11.5-14.5); WHITE BLOOD COUNT 9.8 x10^3/uL (4.0-11.0)
[2019-05-31 13:15] LABS: CALCIUM 8.8 mg/dL (8.5-10.1); CREATININE 0.5 mg/dL (0.6-1.0); GFR 139.6; POTASSIUM 3.8 mmol/L (3.5-5.1)
[2019-05-31 13:21] LABS: ALBUMIN/GLOBULIN RATIO 0.9 (1.0-1.7); TOTAL BILIRUBIN 0.2 mg/dL (0.2-1.0); TOTAL PROTEIN 6.5 g/dL (6.4-8.2)
[2019-05-31 13:58] LABS: BACTERIA,URINE FEW /HPF (0-FEW); BILIRUBIN,URINE NEG (NEG); CLARITY,URINE HAZY; COLOR,URINE STRAW; GLUCOSE,URINE NEG (NEG); NITRITE,URINE NEG (NEG); SQUAMOUS EPITHELIAL CELL,UR FEW /LPF; UROBILINOGEN,URINE 0.2 mg/dL (0.2 mg/dL)
--- NOTE | 2019-05-31 17:57 | EKG ---
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
== END 2019-05-31 14:08 | disposition home or self-care (01) ==
LOC: ER 11:46
DX: O26.892 Other specified pregnancy related conditions, second trimester (principal); R07.89 Other chest pain; R00.2 Palpitations; G43.909 Migraine, unspecified, not intractable, without status migrainosus; Z3A.19 19 weeks gestation of pregnancy
CPT/HCPCS: 36415; 80053; 81001; 84484; 85025; 85379; 87086; 93005; 99284

== ENCOUNTER → 2019-07-27 | Outpatient (CLI) | payer OTHER ==
--- NOTE | 2019-07-27 14:44 | RAD ---
EXAM: Obstetrics sonogram. HISTORY: Size and dates assessment. TECHNIQUE: Sonographic imaging of the gravid uterus was performed. COMPARISON: 03/31/2019. FINDINGS: There is a single intrauterine fetus in breech presentation with a normal heart rate of 136 bpm. There is body motion. There is a three-vessel umbilical cord with normal insertion. The and fluid index is normal at 10.1 cm. There is a posterior placenta without evidence of placenta previa. The stomach, kidneys, bladder, spine, brain, and extremities and heart are unremarkable. The facial profile is not well assessed due to presentation. The cervix is closed and measures 4.4 cm in length. The biparietal diameter is 6.3 cm, corresponding with 25 weeks and 4 days. The heads are present is 24.4 cm, corresponding with 26 weeks and 4 days. The abdominal circumference is 22.1 cm corresponding with 26 weeks and 4 days. The femoral length is 4.9 cm, corresponding with 26 and 5 days. The estimated gestational age patient combined also measurements is 26 weeks and 3 days and the estimated weight is 945 g. This corresponds with the 48th percentile for a gestational age of 26 weeks and 3 days based on LMP. The estimated due date is 10/30/2019. IMPRESSION: 1. Single intrauterine fetus in breech presentation with normal heart rate and gestational age of 26 weeks and 3 days. The gestational age based on ultrasound measurements correspond with a gestational age based on LMP. 2. Suboptimal evaluation of the facial profile due to presentation. The remainder the survey is unremarkable. Electronically signed by: Amalia Ghosh MD (07/27/2019 2:41 PM) [id number]
== END | disposition home or self-care (01) ==
LOC: US 10:47
PROVIDERS: ATTEND Obstetrics & Gynecology
DX: O09.92 Supervision of high risk pregnancy, unspecified, second trimester (principal); O26.842 Uterine size-date discrepancy, second trimester; Z32.01 Encounter for pregnancy test, result positive; N96 Recurrent pregnancy loss; Z3A.26 26 weeks gestation of pregnancy; O32.1XX0 Maternal care for breech presentation, not applicable or unspecified
CPT/HCPCS: 76805